=== PATIENT | female | born 1980 | race Caucasian/White ===

== ENCOUNTER 2017-08-19 11:02 | Outpatient (RCR) | payer OTHER ==
[~2017-08-19 11:02] MED LIST: NORCO 325 MG-51 TAB PO; PROGESTERONE
== END 2017-09-16 10:37 | disposition home or self-care (01) ==
LOC: WSOH 11:02
DX: S80.01XA Contusion of right knee, initial encounter (principal); S16.1XXA Strain of muscle, fascia and tendon at neck level, initial encounter; M25.551 Pain in right hip; W10.8XXA Fall (on) (from) other stairs and steps, initial encounter; Y92.214 College as the place of occurrence of the external cause; Y99.0 Civilian activity done for income or pay; Z88.5 Allergy status to narcotic agent

== ENCOUNTER → 2019-02-26 | Outpatient (CLI) | payer BC | LOC: COL.RAD 09:34 | DX: D25.9 Leiomyoma of uterus, unspecified (principal); N97.9 Female infertility, unspecified; Z90.721 Acquired absence of ovaries, unilateral ==

== ENCOUNTER → 2019-03-02 | Outpatient (CLI) | payer BC ==
[2019-03-02 23:31] LABS: PROGESTERONE 0.1 ng/mL (())
--- NOTE | 2019-03-03 15:26 | NUR ---
SW was contacted by client about labs and ultrasound reports that were not sent to the [facility] ([place] [facility]) [id number] [facility] [place] [address] or . Patient reports that the test are time sensitive and she was given a contact for the hospital ext [phone] to release the results. The [facility] office nurse called about results and stated that they sent an order and that should work for [employer]. SW educated that we do not have access to [employer] or orders. SW educated to provide a release of records with identification in order to fax results. 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 Release obtained and place in office with Documentation in the [facility] chief data officer desk. Sent requested PPW to fax as provided on the PPW. AMY was unable to get a hold of anyone in the departments to have them provide proper orders.
== END ==
LOC: COL.RAD 12:45 → COL.LAB 12:56 → COL.RAD 12:56
DX: R93.89 Abnormal findings on diagnostic imaging of other specified body structures (principal); Z90.710 Acquired absence of both cervix and uterus

== ENCOUNTER → 2019-03-05 | Outpatient (CLI) | payer BC | LOC: COL.RAD 10:30 | DX: N97.9 Female infertility, unspecified (principal) ==

== ENCOUNTER 2019-11-22 12:42 | Inpatient (IN) | payer BC ==
[~2019-11-22] VITALS: Ht 172.7 cm; Wt 90.0 kg
[2019-11-22] VITALS (16 sets, daily range): BP systolic 90–131; BP diastolic 50–94; PULSE 89–109; TEMP 98.4
[2019-11-22 15:13] LABS: BASO # 0.1 (0.0-0.2); BASO % 0.5 % (0.0-2.0); EOS # 0.2 (0.0-0.7); EOS % 1.7 % (0-4.0); GRAN # 8.4 (1.4-6.5); GRAN % 72.1 % (42.2-75.2); HEMATOCRIT 40.3 % (37.0-47.0); HEMOGLOBIN 13.2 g/dl (12.5-16.0); LYMPH # 2.1 (1.2-3.4); LYMPH % 18.3 % (20.0-51.0); MEAN CELL VOLUME 91 fl (80.0-100.0); MEAN CORPUSCULAR HEMOGLOBIN 30 pg (27.0-31.0); MEAN CORPUSCULAR HGB CONC 33 g/dl (33.0-37.0); MEAN PLATELET VOLUME 11.6 fl (7.4-10.4); MONO # 0.8 (0.1-0.6); MONO % 6.5 % (1.7-9.3); PLATELET COUNT 202 K/mm3 (130-400); RED BLOOD COUNT 4.43 M/mm3 (4.10-5.30); REDCELL DISTRIBUTION WIDTH-CV 14.4 % (11.5-14.5)
[2019-11-22] MEDS ORDERED: MOTRIN 800800 MG/TAB PO (16:53)
[2019-11-22] MEDS ORDERED: PERCOCET 325 MG1 TA2 PO (16:53)
[2019-11-23] VITALS: BP 124/68; PULSE 85; TEMP 98
[2019-11-23 05:00] VITALS: BP 110/68; PULSE 69; TEMP 97.6
[2019-11-23 08:24] VITALS: BP 114/82; PULSE 64; TEMP 98.2
[2019-11-23 17:00] VITALS: BP 114/77; PULSE 68; TEMP 98
[2019-11-23 21:45] VITALS: BP 122/71; PULSE 62; TEMP 98.1
[2019-11-24 08:15] VITALS: BP 135/83; PULSE 69; TEMP 98.1
--- NOTE | 2019-11-24 08:15 | NUR ---
Rests in bed, alert. Eating breakfast.
--- NOTE | 2019-11-24 09:15 | NUR ---
Rests in bed, alert. Percocet 5/325 mg two give per request and as ordered.
--- NOTE | 2019-11-24 13:27 | NUR ---
Percocet 5/325 mg one given per request and as ordered.
[2019-11-24 17:00] VITALS: BP 117/62; PULSE 59; TEMP 98
[2019-11-24 20:41] VITALS: BP 130/72; PULSE 75; TEMP 98.2
[2019-11-25 09:08] VITALS: BP 116/69; PULSE 70; TEMP 98.1
== END 2019-11-25 14:10 | disposition home or self-care (01) | DRG 788 ==
LOC: OB 12:42
PROVIDERS: ADMIT Obstetrics & Gynecology
PROC: 10D00Z1 Extraction of Products of Conception, Low, Open Approach (ICD-10-PCS; principal; 2019-11-22)
DX: O34.211 Maternal care for low transverse scar from previous cesarean delivery (principal); O99.344 Other mental disorders complicating childbirth; Z3A.39 39 weeks gestation of pregnancy; Z37.0 Single live birth; F43.10 Post-traumatic stress disorder, unspecified; Z90.49 Acquired absence of other specified parts of digestive tract
CPT/HCPCS: J0690; J1100; J1885; J2405; J2590; J7120

== ENCOUNTER 2022-01-23 21:36 | Emergency (ER) | payer BC ==
[~2022-01-23] VITALS: Ht 172.7 cm; Wt 77.3 kg
[~2022-01-23 21:36] MED LIST changes: +MOTRIN 800800 MG/TAB PO; +PERCOCET 325 MG1 TA2 PO
[2022-01-23 21:51] VITALS: TEMP 99.1
[2022-01-23 22:33] LABS: BASO % 0.6 % (0.0-2.0); EOS # 0.1 K/mm3 (0.0-0.7); EOS % 1.4 % (0.0-4.0); GRAN # 3.2 K/mm3 (1.4-6.5); GRAN % 62.9 % (42.2-75.2); HEMOGLOBIN 11.8 g/dl (12.5-16.0); LYMPH # 1.2 K/mm3 (1.2-3.4); LYMPH % 23.4 % (20.0-51.0); MEAN CELL VOLUME 91 fl (80.0-100.0); MEAN CORPUSCULAR HEMOGLOBIN 31 pg (27-31); MEAN CORPUSCULAR HGB CONC 34 g/dl (33.0-37.0); MEAN PLATELET VOLUME 11.2 fl (7.4-10.4); MONO # 0.6 K/mm3 (0.1-0.6); MONO % 11.5 % (1.7-9.3); PLATELET COUNT 154 K/mm3 (130-400); RED BLOOD COUNT 3.87 M/mm3 (4.10-5.30); REDCELL DISTRIBUTION WIDTH-CV 12.4 % (11.5-14.5)
[2022-01-23 22:42] LABS: HEMATOCRIT 35.2 % (37.0-47.0)
[2022-01-23 22:53] LABS: ALANINE AMINOTRANSFERASE 24 U/L (0-55); ALBUMIN 3.1 gm/dL (3.5-5.0); ALKALINE PHOSPHATASE 97 U/L (40-150); ANION GAP 10 mmol/L (7-16); AST,SGOT 19 U/L (5-34); BILIRUBIN,TOTAL 0.2 mg/dL (0.2-1.2); BLOOD UREA NITROGEN 12 mg/dL (7-19); CALCIUM 8.5 mg/dL (8.4-10.2); CARBON DIOXIDE 22 mmol/L (22-29); CHLORIDE 108 mmol/L (98-107); GLUCOSE 111 mg/dL (70-99); POTASSIUM 3.9 mmol/L (3.5-4.5); SODIUM 140 mmol/L (136-145)
[2022-01-23 23:05] LABS: TROPONIN-I < 0.010 ng/mL (0.00-0.033)
[2022-01-23 23:42] VITALS: BP 109/70; PULSE 84
== END 2022-01-23 23:43 | disposition home or self-care (01) ==
LOC: COL.ER 21:36
PROVIDERS: Physician Assistant
DX: R42 Dizziness and giddiness (principal); Z86.69 Personal history of other diseases of the nervous system and sense organs

== ENCOUNTER → 2022-03-26 | Outpatient (CLI) | payer BC | LOC: MC.RAD 11:08 | DX: Z12.31 Encounter for screening mammogram for malignant neoplasm of breast (principal); N64.89 Other specified disorders of breast ==

== ENCOUNTER → 2022-04-05 | Outpatient (CLI) | payer BC | LOC: MC.RAD 13:56 | DX: R92.8 Other abnormal and inconclusive findings on diagnostic imaging of breast (principal); N64.89 Other specified disorders of breast ==

== ENCOUNTER → 2023-02-13 | Outpatient (CLI) | payer BC | LOC: COL.LAB 08:26 | DX: Z01.89 Encounter for other specified special examinations (principal) ==

== ENCOUNTER → 2023-04-27 | Outpatient (CLI) | payer BC | LOC: COL.LAB 09:31 | PROVIDERS: Obstetrics & Gynecology Reproductive Endocrinology | DX: Z32.00 Encounter for pregnancy test, result unknown (principal) ==

== ENCOUNTER → 2023-04-29 | Outpatient (CLI) | payer BC | LOC: COL.LAB 13:15 | DX: Z00.00 Encounter for general adult medical examination without abnormal findings (principal) ==

== ENCOUNTER 2023-12-26 10:15 | Inpatient (IN) | payer BC ==
[2023-12-26] VITALS (20 sets, daily range): BP systolic 106–159; BP diastolic 67–98; PULSE 79–111; TEMP 97.6
[~2023-12-26] VITALS: Ht 172.8 cm; Wt 97.7 kg
--- NOTE | 2023-12-26 10:30 | NUR ---
1030PT AND SPOUSE AMBULATORY TO UNIT FOR SCHEDULED RPT C/S. PT CHANGED INTO GOWN. PT COMFORTABLE IN BED. 1035THIS RN AT BEDSIDE TO PLACE TOCO AND EFM. PT REPORTS POSITIVE MOVEMENT. PT DENIES CTX, DENIES LOF, AND DENIES VAGINAL BLEEDING. 1040EFM TRACING CAT I. THIS RN DISCUSSES POC WITH PT, QUESTIONS OFFERED AND ANSWERED. PT VERBALIZES UNDERSTANDING, AND AGREEMENT OF POC. 1045IV STARTED AT THIS TIME. FIRST BAG OF IVF STARTED AT THIS TIME.
[2023-12-26] MEDS ORDERED: Ondansetron 4 MG/2 ML VIAL IV SCH (10:45)
[2023-12-26] MEDS ORDERED: LR 1,000 ML IV SCH ×2 (10:45)
[2023-12-26] MEDS ORDERED: Naloxone 0.4 MG/ML VIAL IV PRN (11:30)
[2023-12-26] MEDS ORDERED: Measles/Mumps/Rubella Virus Vaccine Live w Diluent 0.5 ML VIAL SQ SCH (11:30)
[2023-12-26] MEDS ORDERED: LR 1,000 ML IV PRN (11:30)
[2023-12-26] MEDS ORDERED: Acetaminophen 500 MG TAB PO PRN (11:30)
[2023-12-26] MEDS ORDERED: Magnes Hydrox (MOM) 80 MG/ML 30 ML CUP PO PRN (11:30)
[2023-12-26] MEDS ORDERED: Ondansetron 4 MG/2 ML VIAL IV PRN (11:30)
[2023-12-26] MEDS ORDERED: Loratadine 10 MG TAB PO PRN (11:30)
[2023-12-26 11:34] LABS: BASO # 0.1 K/mm3 (0.0-0.2); BASO % 0.5 % (0.0-2.0); EOS # 0.1 K/mm3 (0.0-0.7); EOS % 1.3 % (0.0-4.0); GRAN # 6.9 K/mm3 (1.4-6.5); GRAN % 73.3 % (42.2-75.2); HEMOGLOBIN 10.9 g/dl (12.5-16.0); LYMPH # 1.6 K/mm3 (1.2-3.4); LYMPH % 16.7 % (20.0-51.0); MEAN CELL VOLUME 83 fl (80.0-100.0); MEAN CORPUSCULAR HEMOGLOBIN 26 pg (27-31); MEAN CORPUSCULAR HGB CONC 31 g/dl (33.0-37.0); MEAN PLATELET VOLUME 11.3 fl (7.4-10.4); MONO # 0.7 K/mm3 (0.1-0.6); MONO % 7.6 % (1.7-9.3); PLATELET COUNT 234 K/mm3 (130-400); RED BLOOD COUNT 4.18 M/mm3 (4.10-5.30); REDCELL DISTRIBUTION WIDTH-CV 16.6 % (11.5-14.5)
[2023-12-26 11:35] LABS: HEMATOCRIT 34.7 % (37.0-47.0)
[2023-12-26] MEDS ORDERED: Oxytocin 10 UNITS/ML VIAL ONE (11:45)
[2023-12-26] MEDS ORDERED: NS 10 ML IV ONE ×2 (11:45→12:41)
[2023-12-26] MEDS ORDERED: ePHEDrine 50 MG/ML VIAL ONE (11:45)
[2023-12-26] MEDS ORDERED: Phenylephrine 10 MG/ML VIAL ONE (11:45)
[2023-12-26] MEDS ORDERED: Ketorolac 30 MG/ML VIAL ONE (12:27)
[2023-12-26 12:31] LABS: ALBUMIN 2.8 g/dL (3.5-5.0); BILIRUBIN,TOTAL 0.5 mg/dL (0.2-1.2); CALCIUM 8.9 mg/dL (8.4-10.2); CREATININE, serum 0.64 mg/dL (0.57-1.11); POTASSIUM 4.2 mEq/L (3.5-4.5); TOTAL PROTEIN 6.2 g/dl (6.2-8.1)
[2023-12-26] MEDS ORDERED: dexAMETHasone 10 MG/ML VIAL ONE (12:41)
[2023-12-26] MEDS ORDERED: Tranexamic Acid 1,000 MG/10 ML VIAL ONE (12:54)
[2023-12-26] MEDS ORDERED: Sennosides/Docusate 8.6-50 MG TAB PO SCH (17:00)
[2023-12-26] MEDS ORDERED: Ibuprofen 800 MG TAB PO SCH (17:30)
[2023-12-26] MEDS ORDERED: traZODone 50 MG TAB PO PRN (21:00)
[2023-12-27 00:05] VITALS: BP 134/68; PULSE 93; TEMP 97.8
[2023-12-27 07:00] VITALS: BP 119/67; PULSE 75; TEMP 97.9
[2023-12-27 16:00] VITALS: BP 124/73; PULSE 70; TEMP 98
[2023-12-27] MEDS ORDERED: NORCO 325 MG-51 TAB PO (19:33)
[2023-12-27 21:25] VITALS: BP 132/65; PULSE 78; TEMP 98
[2023-12-28 07:00] VITALS: BP 128/76; PULSE 67
[2023-12-28 16:00] VITALS: BP 122/66; PULSE 74; TEMP 98.7
[2023-12-28 21:00] VITALS: BP 132/75; PULSE 63; TEMP 98.1
[2023-12-29 07:30] VITALS: BP 143/75; PULSE 61; TEMP 97.5
== END 2023-12-29 11:20 | disposition home or self-care (01) | DRG 788 ==
LOC: OB 10:15
PROVIDERS: ADMIT Obstetrics & Gynecology
PROC: 10D00Z1 Extraction of Products of Conception, Low, Open Approach (ICD-10-PCS; principal; 2023-12-26)
DX: O34.211 Maternal care for low transverse scar from previous cesarean delivery (principal); N80.9 Endometriosis, unspecified; O99.824 Streptococcus B carrier state complicating childbirth; Z3A.39 39 weeks gestation of pregnancy; Z37.0 Single live birth
CPT/HCPCS: J0665; J0690; J1100; J1885; J2371; J2405; J2590; J2765; J7120